=== PATIENT | male | born 1940 | race Two or more races ===

== ENCOUNTER 2019-11-27 19:42 | Inpatient (IN) | payer OTHER, MEDICAID ==
[~2019-11-27] VITALS: Ht 167.6 cm; Wt 63.9 kg
[~2019-11-27 19:42] MED LIST: ALEN1TAB32 PO; AMLO10TA13 PO; ATOR1TAB PO; BACL10TA PO; CARV3.1240 PO; CLOP75TA41 PO; FAMO-12 PO; FER325T PO; FURO1TAB33 PO; INSU1INJ26 SC; METH5T PO; RAMI10CA38 PO; RANO500T2 PO; SITA50TA PO; TEMA15CA91 PO
[2019-11-27] MEDS ORDERED: levoFLOXacin 500MG 100 ML IV ONE (20:00)
[2019-11-27] MEDS ORDERED: FUROSEMIDE 40 MG/4 ML VIAL IV ONE (20:00)
[2019-11-27] MEDS ORDERED: methylPREDNISolone SOD SUCC 125 MG/2 ML VL IV ONE (20:00)
[2019-11-27 21:22] LABS: Basophils # (auto) 0 10 ^3/uL (0-0.2); Eosinophils # (auto) 0 10 ^3/uL (0-0.8); Eosinophils % (auto) 0.5 % (0.0-7.0); Hemoglobin 11.8 g/dL (13.5-17.5); Lymphocytes # (auto) 0.7 10 ^3/uL (0.4-5.4); Monocytes # (auto) 0.6 10 ^3/uL (0-1.3); Neutrophils # (auto) 5.4 10 ^3/uL (1.6-8.6); Nucleated Red Blood Cells % 0.1 %; Red Cell Distribution Width 15.4 % (11.8-14.3)
[2019-11-27 21:24] LABS: Basophils % (auto) 0.6 % (0.0-2.0); Hematocrit 35.3 % (41.0-53.0); Lymphocytes % (auto) 10.6 % (10.0-50.0); Mean Corpuscular Hemoglobin 34.1 pg (28.0-32.0); Mean Corpuscular Hgb Conc. 33.4 g/dL (32.0-36.0); Mean Corpuscular Volume 101.9 fL (80.0-100.0); Monocytes % (auto) 9.2 % (0.0-12.0); Neutrophils % (auto) 79.1 % (37.0-80.0); Platelet Count (auto) 403 10^3/uL (140-450); Red Blood Cells 3.46 10^6/uL (4.5-5.90); White Blood Cell 6.9 10^3/uL (4.4-10.8)
[2019-11-27 21:42] LABS: Calcium 7.9 mg/dL (8.5-10.1); Potassium 4.4 mmol/L (3.5-5.1)
[2019-11-27 21:48] LABS: BUN/Creatinine Ratio 14.8; Bilirubin, Total 0.6 mg/dL (0.2-1.0); Total Protein 7.3 g/dL (6.4-8.2)
[2019-11-27 22:09] LABS: Urine Bacteria NONE SEEN /hpf (None Seen); Urine Blood Negative /uL (Negative); Urine Mucus FEW (None Seen); Urine Specific Gravity 1.012 (1.001-1.035); Urine WBC <1 /hpf (0 - 3)
[2019-11-27 22:12] LABS: CRP High Sensitivity 5.08 mg/dL (< 0.3)
[2019-11-27] MEDS ORDERED: NITROGLYCERIN 0.4 MG SL TAB SL PRN (22:15)
[2019-11-27] MEDS ORDERED: MORPHINE SULF INJ 2 MG/ML SYRINGE 1ML IV PRN (22:15)
[2019-11-27] MEDS ORDERED: ONDANSETRON HCL 4 MG/2 ML VIAL IV PRN (22:15)
[2019-11-27] MEDS ORDERED: DEXTROSE (50%) 50ML SYRG IV PRN (22:15)
[2019-11-27] MEDS ORDERED: TEMAZEPAM 15 MG CAP PO PRN (22:15)
[2019-11-27] MEDS ORDERED: ACETAMINOPHEN 325 MG TAB PO PRN (22:15)
[2019-11-27] MEDS ORDERED: DOXYCYCLINE 100MG/250ML 250 ML IV SCH (23:00)
[2019-11-28] MEDS: ACCU-CHEK COMFORT CURVE STRIP VI SCH ×4 (00:16→18:08)
[2019-11-28] MEDS: InsuLIN REG 1unit/0.01ml Soln (100units/ml) SC SCH ×4 (00:19→18:09)
[2019-11-28 01:10] VITALS: BP 128/52
[2019-11-28] MEDS ORDERED: FUROSEMIDE 40 MG/4 ML VIAL IV ONE (03:15)
[2019-11-28] MEDS ORDERED: ALBUTEROL SULF HFA 90MCG INH 200DOSE IN SCH (06:00)
[2019-11-28 06:44] LABS: Basophils # (auto) 0 10 ^3/uL (0-0.2); Eosinophils # (auto) 0 10 ^3/uL (0-0.8); Monocytes # (auto) 0 10 ^3/uL (0-1.3); Monocytes % (auto) 0.4 % (0.0-12.0); Neutrophils # (auto) 5.6 10 ^3/uL (1.6-8.6); Nucleated Red Blood Cells % 0.1 %; Red Blood Cells 3.54 10^6/uL (4.5-5.90)
[2019-11-28 06:46] LABS: Basophils % (auto) 0.2 % (0.0-2.0); Hematocrit 37.1 % (41.0-53.0); Lymphocytes # (auto) 0.4 10 ^3/uL (0.4-5.4); Lymphocytes % (auto) 6.1 % (10.0-50.0); Mean Corpuscular Hemoglobin 33.8 pg (28.0-32.0); Mean Corpuscular Hgb Conc. 32.3 g/dL (32.0-36.0); Mean Corpuscular Volume 104.7 fL (80.0-100.0); Neutrophils % (auto) 93.3 % (37.0-80.0); Platelet Count (auto) 425 10^3/uL (140-450); Red Cell Distribution Width 15.6 % (11.8-14.3)
[2019-11-28 07:02] LABS: Calcium 8.7 mg/dL (8.5-10.1); Potassium 4.9 mmol/L (3.5-5.1)
[2019-11-28 07:05] LABS: Bilirubin, Total 0.7 mg/dL (0.2-1.0); Total Protein 7.8 g/dL (6.4-8.2)
[2019-11-28] MEDS ORDERED: CHOLECALCIFEROL (VITD3) 1,000IU=25mCg TAB PO SCH (10:00)
[2019-11-28] MEDS ORDERED: ZINC SULFATE 220mg CAP or TAB PO SCH (10:00)
[2019-11-28] MEDS ORDERED: ASCORBIC ACID 1,000 MG TAB PO SCH (10:00)
[2019-11-28] MEDS ORDERED: FUROSEMIDE 40 MG TAB PO SCH ×2 (10:00)
[2019-11-28] MEDS ORDERED: RAMIPRIL 2.5 MG CAP PO SCH (10:00)
[2019-11-28] MEDS ORDERED: methylPREDNISolone SOD SUCC 125 MG/2 ML VL IV SCH (10:00)
[2019-11-28] MEDS: ASPirin 81 mg TAB PO SCH (10:21)
[2019-11-28] MEDS: CARVEDILOL 3.125 MG TAB PO SCH ×2 (10:22→21:48)
[2019-11-28] MEDS: amLODIPine BESYLATE 5 MG TAB PO SCH (10:22)
[2019-11-28] MEDS: PANTOPRAZOLE 40 MG TAB PO SCH (10:23)
[2019-11-28] MEDS: CLOPIDOGREL BISULFATE 75 MG TAB PO SCH (10:23)
[2019-11-28] MEDS: RANOLAZINE ER 500 MG TAB PO SCH ×2 (10:24→21:49)
[2019-11-28] MEDS ORDERED: cefTRIAXone 1GM/50ML D5W 50 ML IV ONE (11:30)
[2019-11-28] MEDS ORDERED: AZITHROMYCIN 500MG/ 250ML 250 ML IV ONE (11:30)
--- NOTE | 2019-11-28 13:30 | NUR ---
Telemetry admit from ER [facility] admitted to Telemetry unit after SBAR received. Patient oriented to LAURO MCDERMOTT RN primary RN, unit, room, bed, and unit policies regarding patient care and visiting hours. Patient now on continuous telemetry monitoring, tele box # [id number] and telemetry reading on arrival to unit is SR. Patient placed on bedside oxygen 3L via NC, weighed by bedscale and encouraged to call if they need something. All questions and concerns addressed, patient verbalized understanding.
[2019-11-28 13:35] VITALS: BP 120/60
[2019-11-28] MEDS: ALBUTEROL SULF 2.5 MG/0.5ML(0.5%) NEB SOLN NEB SCH ×3 (13:42→22:17)
[2019-11-28] MEDS: IPRATROPIUM BROM 0.5 MG/2.5ML INH SOL NEB SCH ×3 (13:42→22:17)
[2019-11-28] MEDS ORDERED: APIX5TAB PO (13:51)
[2019-11-28] MEDS ORDERED: ATOR40TA52 PO (13:51)
[2019-11-28] MEDS ORDERED: ALBUAER3 IN (13:51)
[2019-11-28] MEDS ORDERED: FINA5TAB4 PO (13:51)
[2019-11-28] MEDS ORDERED: PANT40TA2 PO (13:51)
[2019-11-28] MEDS ORDERED: MIRT30TA PO (13:51)
[2019-11-28] MEDS ORDERED: CARV6.2551 PO (13:51)
--- NOTE | 2019-11-28 13:52 | NUR ---
Respiratory note: TITRATED FIO2 TO 3L
[2019-11-28] MEDS ORDERED: SITA50TA PO (13:56)
[2019-11-28] MEDS ORDERED: FLUT100I IN (13:56)
[2019-11-28] MEDS ORDERED: ALBUTEROL SULF 2.5 MG/0.5ML(0.5%) NEB SOLN NEB SCH (14:00)
[2019-11-28 14:12] VITALS: BP 120/60
[2019-11-28] MEDS ORDERED: INSULIN LANTUS (GLARGINE) 1 /0.01ml (100units/ml) SC ONE (16:00)
[2019-11-28] MEDS ORDERED: DEXTROSE (50%) 50ML SYRG IV PRN (16:00)
[2019-11-28 17:00] VITALS: BP 128/62
[2019-11-28] MEDS: FUROSEMIDE 40 MG/4 ML VIAL IV SCH (18:15)
[2019-11-28] MEDS ORDERED: levoFLOXacin 250MG 50 ML IV SCH (20:00)
[2019-11-28] MEDS: methylPREDNISolone SOD SUCC 40 MG/ML VL IV SCH (21:48)
[2019-11-28] MEDS: ATORVASTATIN 20 MG TAB PO SCH (21:49)
[2019-11-28 22:00] VITALS: BP 104/52
[2019-11-29] MEDS: ACCU-CHEK COMFORT CURVE STRIP VI SCH ×4 (00:25→18:00)
[2019-11-29] MEDS: InsuLIN REG 1unit/0.01ml Soln (100units/ml) SC SCH ×4 (00:25→18:58)
[2019-11-29] MEDS: IPRATROPIUM BROM 0.5 MG/2.5ML INH SOL NEB SCH ×6 (02:00→22:00)
[2019-11-29] MEDS: ALBUTEROL SULF 2.5 MG/0.5ML(0.5%) NEB SOLN NEB SCH ×6 (02:00→22:00)
[2019-11-29 05:00] VITALS: BP 109/57
[2019-11-29] MEDS: FUROSEMIDE 40 MG/4 ML VIAL IV SCH ×2 (05:53→18:57)
[2019-11-29 06:00] LABS: Basophils # (auto) 0 10 ^3/uL (0-0.2); Basophils % (auto) 0.3 % (0.0-2.0); Eosinophils # (auto) 0 10 ^3/uL (0-0.8); Hematocrit 34.5 % (41.0-53.0); Hemoglobin 11.2 g/dL (13.5-17.5); Lymphocytes # (auto) 0.6 10 ^3/uL (0.4-5.4); Mean Corpuscular Hemoglobin 33.5 pg (28.0-32.0); Mean Corpuscular Hgb Conc. 32.4 g/dL (32.0-36.0); Mean Corpuscular Volume 103.2 fL (80.0-100.0); Monocytes # (auto) 0.3 10 ^3/uL (0-1.3); Monocytes % (auto) 2.2 % (0.0-12.0); Neutrophils # (auto) 13.3 10 ^3/uL (1.6-8.6); Neutrophils % (auto) 93.5 % (37.0-80.0); Platelet Count (auto) 356 10^3/uL (140-450); Red Blood Cells 3.34 10^6/uL (4.5-5.90); Red Cell Distribution Width 15.8 % (11.8-14.3); White Blood Cell 14.2 10^3/uL (4.4-10.8)
[2019-11-29 06:10] LABS: BUN/Creatinine Ratio 13.8; Calcium 7.8 mg/dL (8.5-10.1); Potassium 4.2 mmol/L (3.5-5.1)
--- NOTE | 2019-11-29 07:30 | NUR ---
Opening Shift Note Assumed care of patient, awake and alert. No S/S of distress/SOB or pain. Bed in lowest and locked position with side rails up x2 and call light in reach. Instructed on POC and to call for assist PRN, will continue to monitor for changes Q1hr and PRN.
[2019-11-29 09:00] VITALS: BP 110/59
[2019-11-29] MEDS: cefTRIAXone 1GM/50ML D5W 50 ML IV SCH (09:08)
[2019-11-29] MEDS: methylPREDNISolone SOD SUCC 40 MG/ML VL IV SCH ×2 (09:15→23:09)
[2019-11-29] MEDS: ASPirin 81 mg TAB PO SCH (09:15)
[2019-11-29] MEDS: CARVEDILOL 3.125 MG TAB PO SCH ×2 (09:16→22:00)
[2019-11-29] MEDS: amLODIPine BESYLATE 5 MG TAB PO SCH (09:16)
[2019-11-29] MEDS: PANTOPRAZOLE 40 MG TAB PO SCH (09:17)
[2019-11-29] MEDS: RANOLAZINE ER 500 MG TAB PO SCH ×2 (09:17→23:08)
[2019-11-29] MEDS: CLOPIDOGREL BISULFATE 75 MG TAB PO SCH (09:17)
[2019-11-29] MEDS ORDERED: AZITHROMYCIN 500MG/ 250ML 250 ML IV SCH (10:00)
[2019-11-29 13:00] VITALS: BP 96/49
--- NOTE | 2019-11-29 13:30 | NUR ---
Opening Shift Note Resumed care of patient from Lotus Mcdonough RN, awake and alert. No S/S of distress/SOB, denies pain at this time. Bed in lowest and locked position with side rails up x2 and call light in reach. Instructed on POC and to call for assist PRN, will continue to monitor for changes Q1hr and PRN.
[2019-11-29 16:40] VITALS: BP 119/59
[2019-11-29] MEDS ORDERED: INSULIN 70/30 1unit/0.01ml Susp (100units/ml) SC SCH (17:30)
[2019-11-29 22:00] VITALS: BP 109/49
--- NOTE | 2019-11-29 22:02 | NUR ---
Respiratory note: AT BEDSIDE FOR MED NEB TX, PT SLEEPING. NO RESPIRATORY DISTRESS NOTED. WILL RETURN AT NEXT SCHEDULED TIME FOR MED NEB TX.
[2019-11-29] MEDS: APIXABAN 5 MG TAB PO SCH (23:08)
[2019-11-29] MEDS: ATORVASTATIN 20 MG TAB PO SCH (23:08)
[2019-11-29] MEDS: DOXYCYCLINE 100 MG TAB/CAP PO SCH (23:08)
[2019-11-30] MEDS: InsuLIN REG 1unit/0.01ml Soln (100units/ml) SC SCH ×3 (00:25→12:51)
[2019-11-30] MEDS: ALBUTEROL SULF 2.5 MG/0.5ML(0.5%) NEB SOLN NEB SCH ×3 (01:58→09:36)
[2019-11-30] MEDS: IPRATROPIUM BROM 0.5 MG/2.5ML INH SOL NEB SCH ×3 (01:58→09:36)
--- NOTE | 2019-11-30 01:58 | NUR ---
Respiratory note: PT SLEEPING, MED NEB TX NOT GIVEN. NO RESPIRATORY DISTRESS NOTED, WILL CONTINUE TO MONITOR.
[2019-11-30 04:58] VITALS: BP 108/46
[2019-11-30] MEDS: FUROSEMIDE 40 MG/4 ML VIAL IV SCH (05:47)
[2019-11-30] MEDS: ACCU-CHEK COMFORT CURVE STRIP VI SCH ×3 (06:00→12:00)
[2019-11-30 06:20] LABS: Calcium 8.6 mg/dL (8.5-10.1); Potassium 4.1 mmol/L (3.5-5.1)
[2019-11-30 06:23] LABS: BUN/Creatinine Ratio 16.5
--- NOTE | 2019-11-30 07:28 | NUR ---
Opening Shift Note Assumed care of patient from noc shift rn, asleep on encounter but easily aroused. Alert and oriented x4. No S/S of distress/SOB, denies pain. Bed in lowest and locked position with side rails up x2 and call light in reach. Instructed on POC and to call for assist PRN, will continue to monitor for changes Q1hr and PRN.
[2019-11-30 08:00] VITALS: BP 117/55
[2019-11-30] MEDS ORDERED: INSULIN 70/30 1unit/0.01ml Susp (100units/ml) SC SCH (08:00)
[2019-11-30] MEDS: cefTRIAXone 1GM/50ML D5W 50 ML IV SCH (08:12)
[2019-11-30 09:06] VITALS: BP 117/55
[2019-11-30] MEDS ORDERED: ASPirin 81 mg TAB PO SCH (10:00)
[2019-11-30] MEDS ORDERED: methIMAzole 5 MG TAB PO SCH (10:00)
[2019-11-30] MEDS: methylPREDNISolone SOD SUCC 40 MG/ML VL IV SCH (10:22)
[2019-11-30] MEDS: RANOLAZINE ER 500 MG TAB PO SCH (10:22)
[2019-11-30] MEDS: PANTOPRAZOLE 40 MG TAB PO SCH (10:22)
[2019-11-30] MEDS: DOXYCYCLINE 100 MG TAB/CAP PO SCH (10:23)
[2019-11-30] MEDS: APIXABAN 5 MG TAB PO SCH (10:23)
[2019-11-30] MEDS: CLOPIDOGREL BISULFATE 75 MG TAB PO SCH (10:24)
[2019-11-30] MEDS: CARVEDILOL 3.125 MG TAB PO SCH (10:24)
[2019-11-30] MEDS: amLODIPine BESYLATE 5 MG TAB PO SCH (10:26)
[2019-11-30 11:16] VITALS: BP 117/55
--- NOTE | 2019-11-30 13:25 | NUR ---
patient discharged at this time per MD's order. patient alert and oriented x4 and ambulatory. Discharge summary, prescription, and follow up instructions provided to patient. Patient verbalized understanding. IV access discontinued and tele box #[id number] returned to ICU.
== END 2019-11-30 13:25 | disposition home or self-care (01) | DRG 291 ==
LOC: EDBD 19:42 → ER 19:42 → TELE 19:43 → TELE-CENTR 11-28 13:23
PROVIDERS: ADMIT Nurse Practitioner; ATTEND Internal Medicine
PROC: 5A09357 Assistance with Respiratory Ventilation, Less than 24 Consecutive Hours, Continuous Positive Airway Pressure (ICD-10-PCS; principal; 2019-11-27)
DX: I13.0 Hypertensive heart and chronic kidney disease with heart failure and stage 1 through stage 4 chronic kidney disease, or unspecified chronic kidney disease (principal); J96.21 Acute and chronic respiratory failure with hypoxia; I50.43 Acute on chronic combined systolic (congestive) and diastolic (congestive) heart failure; J18.9 Pneumonia, unspecified organism; N17.9 Acute kidney failure, unspecified; E44.0 Moderate protein-calorie malnutrition; J43.9 Emphysema, unspecified; E11.22 Type 2 diabetes mellitus with diabetic chronic kidney disease; I25.10 Atherosclerotic heart disease of native coronary artery without angina pectoris; I25.5 Ischemic cardiomyopathy; E05.90 Thyrotoxicosis, unspecified without thyrotoxic crisis or storm; N18.3 Chronic kidney disease, stage 3 (moderate); Z82.49 Family history of ischemic heart disease and other diseases of the circulatory system; Z83.3 Family history of diabetes mellitus; Z86.73 Personal history of transient ischemic attack (TIA), and cerebral infarction without residual deficits; Z95.1 Presence of aortocoronary bypass graft; Z95.0 Presence of cardiac pacemaker; Z03.818 Encounter for observation for suspected exposure to other biological agents ruled out; Z68.22 Body mass index [BMI] 22.0-22.9, adult; Z79.4 Long term (current) use of insulin
CPT/HCPCS: 36415; 36600; 71045; 80048; 80053; 81001; 82728; 82805; 82962; 83036; 83605; 83615; 83735; 83880; 84443; 84484; 85025; 85379; 86141; 87040; 87070; 87804; 87880; 93005; 94640; 99291; G0378; J0696; J1815; J1956

== ENCOUNTER 2020-03-09 15:35 | Inpatient (IN) | payer OTHER, MEDICAID ==
[~2020-03-09] VITALS: Ht 167.6 cm; Wt 61.5 kg
[~2020-03-09 15:35] MED LIST changes: +ALBUAER3 IN; +APIX5TAB PO; -ATOR1TAB PO; +ATOR40TA52 PO; -CARV3.1240 PO; +CARV6.2551 PO; +FINA5TAB4 PO; +FLUT100I IN; +MIRT30TA PO; +PANT40TA2 PO
[2020-03-09] MEDS ORDERED: DEXTROSE 50% SYRINGE 50 ML IV ONE (15:43)
[2020-03-09] MEDS ORDERED: DEXTROSE (50%) 50ML SYRG IV ONE (15:43)
[2020-03-09 16:41] LABS: Basophils # (auto) 0 10 ^3/uL (0-0.2); Basophils % (auto) 0.4 % (0.0-2.0); Eosinophils # (auto) 0.1 10 ^3/uL (0-0.8); Hematocrit 34.9 % (41.0-53.0); Hemoglobin 11.7 g/dL (13.5-17.5); Lymphocytes % (auto) 12.9 % (10.0-50.0); Mean Corpuscular Hemoglobin 32.7 pg (28.0-32.0); Mean Corpuscular Hgb Conc. 33.4 g/dL (32.0-36.0); Mean Corpuscular Volume 97.8 fL (80.0-100.0); Monocytes # (auto) 0.5 10 ^3/uL (0-1.3); Monocytes % (auto) 5.9 % (0.0-12.0); Neutrophils # (auto) 6.1 10 ^3/uL (1.6-8.6); Neutrophils % (auto) 79.8 % (37.0-80.0); Nucleated Red Blood Cells % 0.1 %; Platelet Count (auto) 347 10^3/uL (140-450); Red Blood Cells 3.57 10^6/uL (4.5-5.90); Red Cell Distribution Width 16.3 % (11.8-14.3); White Blood Cell 7.6 10^3/uL (4.4-10.8)
[2020-03-09 16:56] LABS: INR 1.08 (0.9-1.15)
[2020-03-09] MEDS ORDERED: D5W/SOD CHLO 0.9% 1,000 ML IV ONE (17:00)
[2020-03-09 17:09] LABS: Albumin 3.4 g/dL (3.4-5.0); Calcium 8.2 mg/dL (8.5-10.1); Magnesium 2.4 mg/dL (1.6-2.6)
[2020-03-09 17:15] LABS: BUN/Creatinine Ratio 8.3; Bilirubin, Total 0.5 mg/dL (0.2-1.0); Total Protein 8.3 g/dL (6.4-8.2)
[2020-03-09] MEDS ORDERED: cefTRIAXone 1GM/50ML D5W 50 ML IV ONE (17:45)
[2020-03-09] MEDS ORDERED: AZITHROMYCIN 500MG/ 250ML 250 ML IV ONE (17:45)
[2020-03-09] MEDS ORDERED: D5W 5% 1,000 ML IV ONE ×2 (18:00)
[2020-03-09] MEDS ORDERED: NITROGLYCERIN 0.4 MG SL TAB SL PRN (18:00)
[2020-03-09] MEDS ORDERED: DEXTROSE (50%) 50ML SYRG IV PRN (18:00)
[2020-03-09] MEDS ORDERED: ACETAMINOPHEN 325 MG TAB PO PRN (18:00)
[2020-03-09] MEDS ORDERED: HYDROcodone-ACET 5/325MG TAB PO PRN (18:00)
[2020-03-09] MEDS ORDERED: MORPHINE SULF INJ 2 MG/ML SYRINGE 1ML IV PRN ×2 (18:00)
[2020-03-09 18:44] LABS: Urine Bacteria NONE SEEN /hpf (None Seen); Urine Blood Negative /uL (Negative); Urine Hyaline Cast FEW /lpf (0 - 2); Urine Specific Gravity 1.007 (1.001-1.035); Urine WBC 4 /hpf (0 - 3)
[2020-03-09] MEDS: ACCU-CHEK COMFORT CURVE STRIP VI SCH (20:36)
[2020-03-09] MEDS: PIPERACILLIN-TAZOB 3.375GM 100 ML IV SCH (22:00)
--- NOTE | 2020-03-09 23:30 | NUR ---
MS admit from ER [facility] admitted to tele/MS. Patient oriented to CIARAN SILVESTRE RN room 249, bed B. Pt is alert and oriented x4, on 3L NC with SOB on exertion. Patient weighed by bedscale and encouraged to call if they need something. All questions and concerns addressed, patient verbalized understanding. Bed locked, in lowest position, call light within reach, side rails up x2, fall precautions in place. Will continue to monitor Q1hr and PRN.
[2020-03-10] MEDS: ACCU-CHEK COMFORT CURVE STRIP VI SCH ×6 (00:11→22:06)
[2020-03-10 00:30] VITALS: BP 148/62
[2020-03-10 05:28] VITALS: BP 125/58
--- NOTE | 2020-03-10 06:40 | NUR ---
IV insertion IV access obtained, via clean sterile technique by inserting 20 gauge catheter at right forearm after 1 attempt. IV secured properly. No trauma to site. Patient tolerated procedure well.
[2020-03-10] MEDS: PIPERACILLIN-TAZOB 3.375GM 100 ML IV SCH (06:42)
[2020-03-10 06:59] LABS: Basophils # (auto) 0 10 ^3/uL (0-0.2); Basophils % (auto) 0.5 % (0.0-2.0); Eosinophils # (auto) 0.1 10 ^3/uL (0-0.8); Eosinophils % (auto) 1.4 % (0.0-7.0); Hematocrit 33.5 % (41.0-53.0); Lymphocytes # (auto) 1.1 10 ^3/uL (0.4-5.4); Lymphocytes % (auto) 17.5 % (10.0-50.0); Mean Corpuscular Hemoglobin 32.2 pg (28.0-32.0); Mean Corpuscular Hgb Conc. 32.9 g/dL (32.0-36.0); Mean Corpuscular Volume 97.9 fL (80.0-100.0); Monocytes # (auto) 0.5 10 ^3/uL (0-1.3); Monocytes % (auto) 8.2 % (0.0-12.0); Neutrophils # (auto) 4.5 10 ^3/uL (1.6-8.6); Neutrophils % (auto) 72.4 % (37.0-80.0); Platelet Count (auto) 343 10^3/uL (140-450); Red Blood Cells 3.42 10^6/uL (4.5-5.90); Red Cell Distribution Width 16.3 % (11.8-14.3); White Blood Cell 6.3 10^3/uL (4.4-10.8)
[2020-03-10 07:23] LABS: Calcium 8.4 mg/dL (8.5-10.1); Magnesium 2.3 mg/dL (1.6-2.6); Potassium 4.1 mmol/L (3.5-5.1)
[2020-03-10 07:26] LABS: BUN/Creatinine Ratio 7.1
[2020-03-10 09:00] VITALS: BP 104/53
--- NOTE | 2020-03-10 09:51 | NUR ---
PAGED DR MORALES PATIENT STATES HE IS ITCHING EVERYWHERE. HE DOES HAVE SLIGHT REDNESS TO BACK AREA.
[2020-03-10] MEDS ORDERED: levoFLOXacin 500MG 100 ML IV ONE (10:30)
[2020-03-10] MEDS: diphenhdrAMINE HCL 25 MG CAP PO PRN (10:51)
[2020-03-10 13:00] VITALS: BP 131/65
[2020-03-10] MEDS ORDERED: DEXTROSE (50%) 50ML SYRG IV PRN (17:00)
[2020-03-10] MEDS: InsuLIN REG 1unit/0.01ml Soln (100units/ml) SC SCH ×2 (17:06→22:00)
--- NOTE | 2020-03-10 19:55 | NUR ---
Opening Shift Note Assumed care of patient. Awake, alert and oriented x4. No S/S of distress/SOB or pain. Pt is on 3L NC with even and unlabored respirations. Pt does get SOB on exertion. Instructed on POC and to call for assist PRN. Bed locked, in lowest position, call light within reach, side rails up x2. Will continue to monitor for changes Q1hr and PRN.
[2020-03-10 22:00] VITALS: BP 122/65
[2020-03-11 05:00] VITALS: BP 126/60
[2020-03-11] MEDS: InsuLIN REG 1unit/0.01ml Soln (100units/ml) SC SCH ×3 (06:19→17:00)
[2020-03-11] MEDS: ACCU-CHEK COMFORT CURVE STRIP VI SCH ×3 (06:20→17:03)
[2020-03-11] MEDS: diphenhdrAMINE HCL 25 MG CAP PO PRN (06:30)
[2020-03-11 07:23] LABS: BUN/Creatinine Ratio 8.6; Calcium 8.8 mg/dL (8.5-10.1); Magnesium 2.3 mg/dL (1.6-2.6); Potassium 4.2 mmol/L (3.5-5.1)
--- NOTE | 2020-03-11 07:50 | NUR ---
Opening note Assumed care of patient from RESHMA Conway. Patient is AOX4 no s/s of SOB or distress noted.Patient noted to be on 2 Liters via nasal cannula. Bed in in lowest locked position, side rails up x2 and call light is within reach. Updated patient on plan of care and patient verbalized understanding. Will continue to monitor q1hr and PRN. Addendum: 03/11/20 at 0913 by HAIR CAMACHO RN PATIENT NOTED TO BE ON 3 LITERS OXYGEN.
[2020-03-11 08:00] VITALS: BP 114/54
--- NOTE | 2020-03-11 08:50 | NUR ---
JUANA KAUFMAN Received fax from [facility] regarding patient results. Patient is COVID -19 negative. Radha loading unit operator powder charging to notify transmitter engineer in charge Rhonda. Addendum: 03/11/20 at 0912 by HAIR CAMACHO RN Updated patient regarding negative results, patient verbalized understanding.
[2020-03-11 10:33] LABS: Basophils # (auto) 0 10 ^3/uL (0-0.2); Basophils % (auto) 0.5 % (0.0-2.0); Eosinophils # (auto) 0.1 10 ^3/uL (0-0.8); Eosinophils % (auto) 1.7 % (0.0-7.0); Hemoglobin 11.1 g/dL (13.5-17.5); Lymphocytes # (auto) 1.3 10 ^3/uL (0.4-5.4); Lymphocytes % (auto) 22.1 % (10.0-50.0); Mean Corpuscular Hemoglobin 32.9 pg (28.0-32.0); Mean Corpuscular Hgb Conc. 33.7 g/dL (32.0-36.0); Mean Corpuscular Volume 97.7 fL (80.0-100.0); Monocytes # (auto) 0.4 10 ^3/uL (0-1.3); Monocytes % (auto) 7.5 % (0.0-12.0); Neutrophils % (auto) 68.2 % (37.0-80.0); Nucleated Red Blood Cells % 0.1 %; Platelet Count (auto) 340 10^3/uL (140-450); Red Blood Cells 3.38 10^6/uL (4.5-5.90); Red Cell Distribution Width 16.1 % (11.8-14.3); White Blood Cell 5.9 10^3/uL (4.4-10.8)
--- NOTE | 2020-03-11 12:48 | NUR ---
Received call from Form Press Operator. Patient assigned to room 219B with AGUILA Parham.
--- NOTE | 2020-03-11 12:50 | NUR ---
report report given to AGUILA Parham.
--- NOTE | 2020-03-11 13:00 | NUR ---
tele monitor Notified tele personnel monitor regarding patient changing rooms. Sent current tele monitor to tele room via bullet, requested new tele box for central. Awaiting new tele monitor box.
--- NOTE | 2020-03-11 13:25 | NUR ---
Patient placed on tele box #[id number]
--- NOTE | 2020-03-11 13:37 | NUR ---
patient transferred to room 219b via wheel chair with all personal belongings, no s/s of distress or SOB noted.
--- NOTE | 2020-03-11 13:38 | NUR ---
Assumed care of patient Patient resting in bed with even and unlabored respirations, no distress noted. Instructed patient on POC, fall precautions and to call for assistance as needed. Patient verbalized understanding. Fall precautions in place with call light within reach.
--- NOTE | 2020-03-11 14:15 | NUR ---
was at bedside - Dr. Benjamin
[2020-03-11 14:35] VITALS: BP 122/68
--- NOTE | 2020-03-11 14:37 | NUR ---
RE: Cardiology Contacted Dr. Carney's office RE: discharge clearance. to be paged. Spoke with Adrianna.
--- NOTE | 2020-03-11 15:41 | NUR ---
RE: Cardiology MD verbalized understanding RE: discharge clearance. MD to come to bedside.
--- NOTE | 2020-03-11 16:00 | NUR ---
Patient ambulated to restroom with a steady gait No distress noted. Patient returned to bed with no complications noted. Call light within reach.
--- NOTE | 2020-03-11 16:08 | NUR ---
dietary tech at bedside
[2020-03-11 16:39] VITALS: BP 136/60
--- NOTE | 2020-03-11 16:59 | NUR ---
Dr. Carney at bedside
--- NOTE | 2020-03-11 17:02 | NUR ---
Patient okay for discharge per Dr. Carney.
--- NOTE | 2020-03-11 18:21 | NUR ---
Discharge Discharge education and paperwork provided to the patient per MD order. Patient verbalized understanding. Instructed patient on discharge telephone follow up appointment. Patient verbalized understanding. IV removed with aseptic technique, catheter intact. Dressing and pressure applied. Patient tolerated well, no trauma to site. Telemonitor removed and returned. Patient reports having all personal belongings. Respirations even and unlabored, no distress noted. Patient has contacted transportation and is to notify staff once transportation has arrived to hospital.
--- NOTE | 2020-03-11 18:51 | NUR ---
Transportation arrived to hospital Patient transferred to private vehicle via wheelchair accompanied by staff member. No distress noted.
== END 2020-03-11 18:51 | disposition home health service (06) | DRG 637 ==
LOC: ER 15:35 → EDBD 15:35 → TELE 15:36 → TELE-EAST 23:09 → TELE-CENTR 03-11 13:40
PROVIDERS: ADMIT Internal Medicine; ATTEND Internal Medicine
DX: E11.649 Type 2 diabetes mellitus with hypoglycemia without coma (principal); J18.9 Pneumonia, unspecified organism; G93.41 Metabolic encephalopathy; I24.8 Other forms of acute ischemic heart disease; N17.0 Acute kidney failure with tubular necrosis; Z20.828 Contact with and (suspected) exposure to other viral communicable diseases; E78.5 Hyperlipidemia, unspecified; I11.0 Hypertensive heart disease with heart failure; I25.10 Atherosclerotic heart disease of native coronary artery without angina pectoris; J32.9 Chronic sinusitis, unspecified; I34.0 Nonrheumatic mitral (valve) insufficiency; I50.9 Heart failure, unspecified; Z82.49 Family history of ischemic heart disease and other diseases of the circulatory system; Z83.3 Family history of diabetes mellitus; Z86.73 Personal history of transient ischemic attack (TIA), and cerebral infarction without residual deficits; Z79.4 Long term (current) use of insulin; Z95.0 Presence of cardiac pacemaker; Z95.1 Presence of aortocoronary bypass graft
CPT/HCPCS: 36415; 70450; 71045; 80048; 80053; 81001; 82962; 83036; 83735; 83880; 84484; 85025; 85610; 85730; 87426; 93005; 93306; 97163; 99291; G0378; J0696; J1815; J1956; J2543; J7042

== ENCOUNTER 2020-11-14 09:34 | Inpatient (IN) | payer OTHER, MEDICAID ==
[~2020-11-14] VITALS: Ht 165.1 cm; Wt 57.0 kg
[~2020-11-14 09:34] MED LIST changes: -ALEN1TAB32 PO; +ALEN70TA74 PO; +AMLO-496 PO; -AMLO10TA13 PO; -CLOP75TA41 PO; +CLOP75TA70 PO; +MIRT-66 PO; -MIRT30TA PO; -SITA50TA PO; +TEMA15CA2 PO; -TEMA15CA91 PO
[2020-11-14 10:19] LABS: Basophils # (auto) 0 10 ^3/uL (0-0.2); Basophils % (auto) 0.7 % (0.0-2.0); Eosinophils # (auto) 0.2 10 ^3/uL (0-0.8); Eosinophils % (auto) 3.1 % (0.0-7.0); Hematocrit 36.3 % (41.0-53.0); Lymphocytes # (auto) 1.3 10 ^3/uL (0.4-5.4); Lymphocytes % (auto) 20.2 % (10.0-50.0); Mean Corpuscular Hemoglobin 32.2 pg (28.0-32.0); Mean Corpuscular Hgb Conc. 33.1 g/dL (32.0-36.0); Mean Corpuscular Volume 97.4 fL (80.0-100.0); Monocytes # (auto) 0.6 10 ^3/uL (0-1.3); Monocytes % (auto) 9.5 % (0.0-12.0); Neutrophils # (auto) 4.2 10 ^3/uL (1.6-8.6); Neutrophils % (auto) 66.5 % (37.0-80.0); Platelet Count (auto) 293 10^3/uL (140-450); Red Blood Cells 3.72 10^6/uL (4.5-5.90); Red Cell Distribution Width 15.7 % (11.8-14.3); White Blood Cell 6.4 10^3/uL (4.4-10.8)
[2020-11-14 10:28] LABS: INR 1.01 (0.9-1.15); Partial Thromboplastin Time 28.4 sec (23.0-31.2)
[2020-11-14 10:34] LABS: Albumin 2.9 g/dL (3.4-5.0); Calcium 8.5 mg/dL (8.5-10.1); Magnesium 2.2 mg/dL (1.6-2.6); Potassium 3.8 mmol/L (3.5-5.1)
[2020-11-14 10:39] LABS: BUN/Creatinine Ratio 9.3; Bilirubin, Total 0.3 mg/dL (0.2-1.0); Total Protein 7.6 g/dL (6.4-8.2)
[2020-11-14] MEDS ORDERED: ENOXAPARIN SOD 80 MG/0.8ML SYRINGE SC ONE (11:00)
[2020-11-14 12:40] LABS: Urine Bacteria NONE SEEN /hpf (None Seen); Urine Blood Negative /uL (Negative); Urine Specific Gravity 1.011 (1.001-1.035); Urine WBC <1 /hpf (0 - 3)
[2020-11-14] MEDS ORDERED: MORPHINE SULF INJ 2 MG/ML SYRINGE 1ML IV PRN ×3 (13:15→18:15)
[2020-11-14] MEDS ORDERED: NITROGLYCERIN 0.4 MG SL TAB SL PRN ×2 (13:15→18:15)
[2020-11-14] MEDS ORDERED: LABETALOL HCL 5 MG/ML 4ML SYRINGE IV PRN (18:15)
[2020-11-14] MEDS ORDERED: LORazepam 0.5 MG TAB PO PRN (18:15)
[2020-11-14] MEDS ORDERED: PANTOPRAZOLE 40 MG/10 ML VIAL INJ IV ONE (18:15)
[2020-11-14] MEDS ORDERED: ALUM & MAG HYDROX-SIMETH LIQ(MAALOX) 30 ML PO PRN (18:15)
[2020-11-14] MEDS ORDERED: MORPHINE SULFATE 4 MG/ML SYR/VIAL IV PRN (18:15)
[2020-11-14] MEDS ORDERED: DEXTROSE (50%) 50ML SYRG IV PRN (18:15)
[2020-11-14] MEDS ORDERED: FUROSEMIDE 40 MG/4 ML VIAL IV ONE (18:15)
[2020-11-14] MEDS ORDERED: SUCRALFATE 1 GM/10 ML ORAL SUSP PO ONE (18:15)
[2020-11-14] MEDS ORDERED: ONDANSETRON HCL 4 MG/2 ML VIAL IV PRN ×2 (18:15)
[2020-11-14] MEDS ORDERED: METOPROLOL SUCCINATE XL 50 MG TAB PO ONE (18:15)
[2020-11-14] MEDS ORDERED: ALUM & MAG HYDROX-SIMETH LIQ(MAALOX) 30 ML PO ONE (18:15)
[2020-11-14 20:55] LABS: Urine Bacteria NONE SEEN /hpf (None Seen); Urine Blood Negative /uL (Negative); Urine Specific Gravity 1.009 (1.001-1.035); Urine WBC <1 /hpf (0 - 3)
[2020-11-14 22:00] VITALS: BP 141/69
[2020-11-14] MEDS ORDERED: FLUTICASONE-VILANTEROL 100-25mCg INHALER IN SCH (22:00)
[2020-11-14] MEDS: InsuLIN REG 1unit/0.01ml Soln (100units/ml) SC SCH (22:00)
[2020-11-14] MEDS: ACCU-CHEK COMFORT CURVE STRIP VI SCH (22:00)
[2020-11-14] MEDS: SUCRALFATE 1 GM/10 ML ORAL SUSP PO SCH (22:25)
[2020-11-14] MEDS: RANOLAZINE ER 500 MG TAB PO SCH (22:26)
[2020-11-14] MEDS: APIXABAN 5 MG TAB PO SCH (22:26)
[2020-11-14] MEDS: BACLOFEN 10 MG TAB PO SCH (22:27)
[2020-11-14] MEDS: ATORVASTATIN 20 MG TAB PO SCH (22:27)
[2020-11-14] MEDS: SODIUM CHLOR 0.9% PF (SALINE LOCK) 10ML VIAL/SYR IV SCH (22:28)
[2020-11-15] MEDS ORDERED: ALBUTEROL SULF HFA 90MCG INH 200DOSE IN SCH
[2020-11-15 05:00] VITALS: BP 126/63
[2020-11-15 05:24] LABS: Basophils # (auto) 0.1 10 ^3/uL (0-0.2); Basophils % (auto) 1.7 % (0.0-2.0); Eosinophils # (auto) 0.2 10 ^3/uL (0-0.8); Eosinophils % (auto) 3.8 % (0.0-7.0); Hematocrit 37.2 % (41.0-53.0); Hemoglobin 13.1 g/dL (13.5-17.5); Lymphocytes # (auto) 1.2 10 ^3/uL (0.4-5.4); Lymphocytes % (auto) 18.6 % (10.0-50.0); Mean Corpuscular Hemoglobin 33.6 pg (28.0-32.0); Mean Corpuscular Hgb Conc. 35.1 g/dL (32.0-36.0); Mean Corpuscular Volume 95.9 fL (80.0-100.0); Monocytes # (auto) 0.7 10 ^3/uL (0-1.3); Monocytes % (auto) 10.3 % (0.0-12.0); Neutrophils # (auto) 4.2 10 ^3/uL (1.6-8.6); Neutrophils % (auto) 65.6 % (37.0-80.0); Nucleated Red Blood Cells % 0.1 %; Platelet Count (auto) 305 10^3/uL (140-450); Red Blood Cells 3.88 10^6/uL (4.5-5.90); Red Cell Distribution Width 15.6 % (11.8-14.3); White Blood Cell 6.4 10^3/uL (4.4-10.8)
[2020-11-15] MEDS: SODIUM CHLOR 0.9% PF (SALINE LOCK) 10ML VIAL/SYR IV SCH ×3 (05:26→22:40)
[2020-11-15] MEDS: FUROSEMIDE 40 MG/4 ML VIAL IV SCH ×2 (05:26→18:05)
[2020-11-15 05:31] LABS: INR 1.06 (0.9-1.15); Partial Thromboplastin Time 30.1 sec (23.0-31.2)
[2020-11-15 05:39] LABS: Potassium 3.5 mmol/L (3.5-5.1)
[2020-11-15 05:51] LABS: BUN/Creatinine Ratio 11.1; Bilirubin, Total 0.5 mg/dL (0.2-1.0); Calcium 8.5 mg/dL (8.5-10.1); Magnesium 2.1 mg/dL (1.6-2.6); Phosphorus 3.6 mg/dL (2.5-4.90); Total Protein 8.1 g/dL (6.4-8.2)
[2020-11-15] MEDS: ACCU-CHEK COMFORT CURVE STRIP VI SCH ×4 (06:27→22:43)
[2020-11-15] MEDS: SUCRALFATE 1 GM/10 ML ORAL SUSP PO SCH ×4 (06:27→22:40)
[2020-11-15] MEDS: InsuLIN REG 1unit/0.01ml Soln (100units/ml) SC SCH ×4 (06:33→22:47)
[2020-11-15 09:00] VITALS: BP 110/63
[2020-11-15] MEDS ORDERED: DOCUSATE SOD 100 MG CAP PO PRN (10:00)
[2020-11-15] MEDS: DOCUSATE SOD 100 MG CAP PO SCH (10:15)
[2020-11-15] MEDS: RANOLAZINE ER 500 MG TAB PO SCH ×2 (10:15→22:42)
[2020-11-15] MEDS: BACLOFEN 10 MG TAB PO SCH ×2 (10:15→22:41)
[2020-11-15] MEDS: FERROUS SULFATE 325mg EC TAB PO SCH (10:16)
[2020-11-15] MEDS: CLOPIDOGREL BISULFATE 75 MG TAB PO SCH (10:16)
[2020-11-15] MEDS: APIXABAN 5 MG TAB PO SCH (10:16)
[2020-11-15] MEDS: CARVEDILOL 3.125 MG TAB PO SCH ×2 (10:17→22:41)
[2020-11-15] MEDS: FINASTERIDE 5 MG TAB PO SCH (10:18)
[2020-11-15] MEDS: PANTOPRAZOLE 40 MG/10 ML VIAL INJ IV SCH ×2 (10:18→22:40)
[2020-11-15] MEDS: RAMIPRIL 10 MG CAP PO SCH (10:19)
[2020-11-15 13:29] VITALS: BP 105/44
[2020-11-15 17:00] VITALS: BP 100/50
[2020-11-15] MEDS: MIRTAZAPINE 30 MG TAB PO SCH (18:00)
[2020-11-15] MEDS: TEMAZEPAM 15 MG CAP PO SCH (18:07)
[2020-11-15 22:00] VITALS: BP 111/48
[2020-11-15] MEDS: FLUTICASONE VILANTEROL IN SCH (22:00)
[2020-11-15] MEDS: ATORVASTATIN 20 MG TAB PO SCH (22:41)
[2020-11-15] MEDS: ENOXAPARIN SOD 60 MG/0.6 ML SYRINGE SC SCH (22:42)
[2020-11-16 05:00] VITALS: BP 108/57
[2020-11-16 05:44] LABS: Basophils # (auto) 0.1 10 ^3/uL (0-0.2); Basophils % (auto) 0.8 % (0.0-2.0); Eosinophils # (auto) 0.2 10 ^3/uL (0-0.8); Eosinophils % (auto) 3.6 % (0.0-7.0); Hematocrit 37.7 % (41.0-53.0); Hemoglobin 13.1 g/dL (13.5-17.5); Lymphocytes # (auto) 1.5 10 ^3/uL (0.4-5.4); Lymphocytes % (auto) 23.9 % (10.0-50.0); Mean Corpuscular Hemoglobin 33.4 pg (28.0-32.0); Mean Corpuscular Hgb Conc. 34.7 g/dL (32.0-36.0); Mean Corpuscular Volume 96.4 fL (80.0-100.0); Monocytes # (auto) 0.6 10 ^3/uL (0-1.3); Monocytes % (auto) 9.3 % (0.0-12.0); Neutrophils % (auto) 62.4 % (37.0-80.0); Platelet Count (auto) 299 10^3/uL (140-450); Red Blood Cells 3.91 10^6/uL (4.5-5.90); Red Cell Distribution Width 15.2 % (11.8-14.3); White Blood Cell 6.4 10^3/uL (4.4-10.8)
[2020-11-16 05:59] LABS: INR 1.08 (0.9-1.15); Partial Thromboplastin Time 36.9 sec (23.0-31.2)
[2020-11-16] MEDS: FUROSEMIDE 40 MG/4 ML VIAL IV SCH (06:01)
[2020-11-16] MEDS: SUCRALFATE 1 GM/10 ML ORAL SUSP PO SCH ×4 (06:02→21:44)
[2020-11-16] MEDS: SODIUM CHLOR 0.9% PF (SALINE LOCK) 10ML VIAL/SYR IV SCH ×3 (06:02→21:44)
[2020-11-16] MEDS: ACCU-CHEK COMFORT CURVE STRIP VI SCH ×4 (06:02→21:47)
[2020-11-16 06:03] LABS: Calcium 8.6 mg/dL (8.5-10.1); Potassium 4.1 mmol/L (3.5-5.1)
[2020-11-16 06:12] LABS: BUN/Creatinine Ratio 11.1; Bilirubin, Total 0.5 mg/dL (0.2-1.0); Magnesium 2.2 mg/dL (1.6-2.6); Phosphorus 3.6 mg/dL (2.5-4.90); Total Protein 7.9 g/dL (6.4-8.2)
[2020-11-16] MEDS: InsuLIN REG 1unit/0.01ml Soln (100units/ml) SC SCH ×4 (06:18→21:51)
[2020-11-16 08:24] VITALS: BP 104/60
[2020-11-16] MEDS: PANTOPRAZOLE 40 MG/10 ML VIAL INJ IV SCH ×2 (09:50→21:44)
[2020-11-16] MEDS: FERROUS SULFATE 325mg EC TAB PO SCH (09:51)
[2020-11-16] MEDS: RAMIPRIL 10 MG CAP PO SCH (09:54)
[2020-11-16] MEDS: DOCUSATE SOD 100 MG CAP PO SCH (09:55)
[2020-11-16] MEDS: CARVEDILOL 3.125 MG TAB PO SCH ×2 (09:55→21:44)
[2020-11-16] MEDS: RANOLAZINE ER 500 MG TAB PO SCH ×2 (09:56→21:47)
[2020-11-16] MEDS: BACLOFEN 10 MG TAB PO SCH ×2 (09:56→21:46)
[2020-11-16] MEDS: FINASTERIDE 5 MG TAB PO SCH (09:56)
[2020-11-16] MEDS: CLOPIDOGREL BISULFATE 75 MG TAB PO SCH (09:56)
[2020-11-16] MEDS: ENOXAPARIN SOD 60 MG/0.6 ML SYRINGE SC SCH (09:56)
[2020-11-16] MEDS: FLUTICASONE VILANTEROL IN SCH ×2 (09:57→21:43)
[2020-11-16] MEDS: SODIUM CHLORIDE 0.9% 1,000 ML IV SCH (09:58)
[2020-11-16] MEDS ORDERED: DAPAGLIFLOZIN 5 MG TAB PO SCH (10:00)
[2020-11-16 12:48] VITALS: BP 100/50
[2020-11-16] MEDS: ACETYLCYSTEINE 20%(200MG/ML) SOLN 30ML PO SCH ×2 (14:06→21:46)
[2020-11-16 16:50] VITALS: BP 134/58
[2020-11-16] MEDS: TEMAZEPAM 15 MG CAP PO SCH (18:15)
[2020-11-16] MEDS: MIRTAZAPINE 30 MG TAB PO SCH (18:15)
[2020-11-16] MEDS: ATORVASTATIN 20 MG TAB PO SCH (21:46)
[2020-11-16 22:00] VITALS: BP 107/50
[2020-11-17 05:00] VITALS: BP 141/72
[2020-11-17] MEDS: SODIUM CHLORIDE 0.9% 1,000 ML IV SCH (05:00)
[2020-11-17] MEDS: SODIUM CHLOR 0.9% PF (SALINE LOCK) 10ML VIAL/SYR IV SCH ×3 (05:16→22:02)
[2020-11-17] MEDS: ACCU-CHEK COMFORT CURVE STRIP VI SCH ×4 (06:25→22:04)
[2020-11-17] MEDS: SUCRALFATE 1 GM/10 ML ORAL SUSP PO SCH ×4 (06:25→22:00)
[2020-11-17] MEDS: InsuLIN REG 1unit/0.01ml Soln (100units/ml) SC SCH ×4 (06:32→22:08)
[2020-11-17 08:10] VITALS: BP 126/65
[2020-11-17] MEDS: FLUTICASONE VILANTEROL IN SCH ×2 (10:00→22:00)
[2020-11-17] MEDS ORDERED: ENOXAPARIN SOD 60 MG/0.6 ML SYRINGE SC SCH (10:00)
[2020-11-17] MEDS: PANTOPRAZOLE 40 MG/10 ML VIAL INJ IV SCH ×2 (10:02→22:02)
[2020-11-17] MEDS: FERROUS SULFATE 325mg EC TAB PO SCH (10:02)
[2020-11-17] MEDS: HYDROcodone-ACET 5/325MG TAB PO PRN (10:03)
[2020-11-17] MEDS: DOCUSATE SOD 100 MG CAP PO SCH (10:03)
[2020-11-17] MEDS: CARVEDILOL 3.125 MG TAB PO SCH ×2 (10:04→22:00)
[2020-11-17] MEDS: RANOLAZINE ER 500 MG TAB PO SCH ×2 (10:05→22:04)
[2020-11-17] MEDS: BACLOFEN 10 MG TAB PO SCH ×2 (10:05→22:03)
[2020-11-17] MEDS: CLOPIDOGREL BISULFATE 75 MG TAB PO SCH (10:05)
[2020-11-17] MEDS: FINASTERIDE 5 MG TAB PO SCH (10:08)
[2020-11-17] MEDS: ACETYLCYSTEINE 20%(200MG/ML) SOLN 30ML PO SCH ×2 (10:22→22:04)
[2020-11-17] MEDS ORDERED: RANOLAZINE ER 500 MG TAB PO ONE (10:30)
[2020-11-17 12:27] VITALS: BP 137/56
[2020-11-17 16:51] VITALS: BP 121/63
[2020-11-17 18:00] VITALS: BP 132/59
[2020-11-17] MEDS: MIRTAZAPINE 30 MG TAB PO SCH (18:04)
[2020-11-17] MEDS: TEMAZEPAM 15 MG CAP PO SCH (18:04)
[2020-11-17 22:00] VITALS: BP 132/59
[2020-11-17] MEDS: ATORVASTATIN 20 MG TAB PO SCH (22:03)
[2020-11-18] MEDS: SODIUM CHLORIDE 0.9% 1,000 ML IV SCH (00:45)
[2020-11-18] MEDS: SUCRALFATE 1 GM/10 ML ORAL SUSP PO SCH ×4 (00:46→22:17)
[2020-11-18 05:00] VITALS: BP 137/59
[2020-11-18] MEDS: InsuLIN REG 1unit/0.01ml Soln (100units/ml) SC SCH ×4 (05:31→22:19)
[2020-11-18] MEDS: SODIUM CHLOR 0.9% PF (SALINE LOCK) 10ML VIAL/SYR IV SCH ×3 (05:31→22:17)
[2020-11-18] MEDS: ACCU-CHEK COMFORT CURVE STRIP VI SCH ×4 (05:32→22:19)
[2020-11-18 05:46] LABS: Basophils # (auto) 0.1 10 ^3/uL (0-0.2); Basophils % (auto) 1.1 % (0.0-2.0); Eosinophils # (auto) 0.3 10 ^3/uL (0-0.8); Eosinophils % (auto) 3.7 % (0.0-7.0); Hematocrit 35.3 % (41.0-53.0); Hemoglobin 11.9 g/dL (13.5-17.5); Lymphocytes # (auto) 1.7 10 ^3/uL (0.4-5.4); Mean Corpuscular Hemoglobin 32.6 pg (28.0-32.0); Mean Corpuscular Hgb Conc. 33.7 g/dL (32.0-36.0); Mean Corpuscular Volume 96.7 fL (80.0-100.0); Monocytes # (auto) 0.7 10 ^3/uL (0-1.3); Monocytes % (auto) 9.6 % (0.0-12.0); Neutrophils # (auto) 4.2 10 ^3/uL (1.6-8.6); Neutrophils % (auto) 60.6 % (37.0-80.0); Nucleated Red Blood Cells % 0.1 %; Platelet Count (auto) 319 10^3/uL (140-450); Red Blood Cells 3.65 10^6/uL (4.5-5.90); Red Cell Distribution Width 15.4 % (11.8-14.3); White Blood Cell 6.9 10^3/uL (4.4-10.8)
[2020-11-18 05:58] LABS: INR 1.03 (0.9-1.15); Partial Thromboplastin Time 26.1 sec (23.0-31.2)
[2020-11-18 06:12] LABS: BUN/Creatinine Ratio 20.1; Calcium 8.3 mg/dL (8.5-10.1)
[2020-11-18] MEDS ORDERED: IODIXANOL 320MG/ML 100ML BTL IV ONE ×3 (07:30→09:03)
[2020-11-18] MEDS ORDERED: LIDOCAINE 2%HCL (LOCAL ANESTH.) INJ 20ML MDV ONE (07:30)
[2020-11-18] MEDS ORDERED: SODIUM CHL 0.9% 50 ML ONE (08:25)
[2020-11-18] MEDS ORDERED: ANGIOMAX 250 MG VIAL IV ONE (08:25)
[2020-11-18] MEDS ORDERED: MIDAZOLAM HCL 1MG/1ML-2 ML VIAL ONE (08:25)
[2020-11-18] MEDS ORDERED: fentaNYL CITRATE 100 MCG/2 ML VL ONE (08:25)
[2020-11-18] MEDS ORDERED: CLOPIDOGREL BISULFATE 75 MG TAB ONE (09:29)
[2020-11-18] MEDS ORDERED: ASPirin 81 mg TAB ONE (09:29)
[2020-11-18] MEDS: FERROUS SULFATE 325mg EC TAB PO SCH (10:00)
[2020-11-18] MEDS: FLUTICASONE VILANTEROL IN SCH ×2 (10:00→22:00)
[2020-11-18] MEDS: CARVEDILOL 3.125 MG TAB PO SCH ×2 (10:00→22:00)
[2020-11-18] MEDS: RANOLAZINE ER 500 MG TAB PO SCH ×2 (10:00→22:18)
[2020-11-18] MEDS: BACLOFEN 10 MG TAB PO SCH ×2 (10:00→22:18)
[2020-11-18] MEDS: DOCUSATE SOD 100 MG CAP PO SCH (10:00)
[2020-11-18] MEDS: PANTOPRAZOLE 40 MG/10 ML VIAL INJ IV SCH ×2 (10:00→22:17)
[2020-11-18] MEDS: CLOPIDOGREL BISULFATE 75 MG TAB PO SCH (10:00)
[2020-11-18] MEDS: FINASTERIDE 5 MG TAB PO SCH (12:21)
[2020-11-18 13:00] VITALS: BP 135/58
[2020-11-18 14:00] VITALS: BP 116/61
[2020-11-18 17:00] VITALS: BP 122/52
[2020-11-18] MEDS: TEMAZEPAM 15 MG CAP PO SCH (18:07)
[2020-11-18] MEDS: MIRTAZAPINE 30 MG TAB PO SCH (18:07)
[2020-11-18 22:00] VITALS: BP 115/54
[2020-11-18] MEDS: ATORVASTATIN 20 MG TAB PO SCH (22:18)
[2020-11-19 05:00] VITALS: BP 143/80
[2020-11-19] MEDS: SODIUM CHLOR 0.9% PF (SALINE LOCK) 10ML VIAL/SYR IV SCH ×2 (05:19→16:51)
[2020-11-19 05:59] LABS: Basophils # (auto) 0 10 ^3/uL (0-0.2); Basophils % (auto) 0.5 % (0.0-2.0); Eosinophils # (auto) 0.3 10 ^3/uL (0-0.8); Eosinophils % (auto) 3.2 % (0.0-7.0); Hematocrit 34.8 % (41.0-53.0); Lymphocytes # (auto) 1.6 10 ^3/uL (0.4-5.4); Lymphocytes % (auto) 20.1 % (10.0-50.0); Mean Corpuscular Hemoglobin 33.3 pg (28.0-32.0); Mean Corpuscular Hgb Conc. 34.5 g/dL (32.0-36.0); Mean Corpuscular Volume 96.7 fL (80.0-100.0); Monocytes # (auto) 0.7 10 ^3/uL (0-1.3); Monocytes % (auto) 8.7 % (0.0-12.0); Neutrophils # (auto) 5.5 10 ^3/uL (1.6-8.6); Neutrophils % (auto) 67.5 % (37.0-80.0); Nucleated Red Blood Cells % 0.1 %; Platelet Count (auto) 279 10^3/uL (140-450); Red Cell Distribution Width 15.5 % (11.8-14.3); White Blood Cell 8.1 10^3/uL (4.4-10.8)
[2020-11-19 06:14] LABS: BUN/Creatinine Ratio 14.2; Calcium 8.8 mg/dL (8.5-10.1)
[2020-11-19] MEDS: ACCU-CHEK COMFORT CURVE STRIP VI SCH ×3 (06:27→17:01)
[2020-11-19] MEDS: SUCRALFATE 1 GM/10 ML ORAL SUSP PO SCH ×3 (06:27→17:07)
[2020-11-19] MEDS: InsuLIN REG 1unit/0.01ml Soln (100units/ml) SC SCH ×3 (06:28→17:07)
[2020-11-19 09:00] VITALS: BP 125/58
[2020-11-19] MEDS: CLOPIDOGREL BISULFATE 75 MG TAB PO SCH (09:36)
[2020-11-19] MEDS: PANTOPRAZOLE 40 MG/10 ML VIAL INJ IV SCH (09:36)
[2020-11-19] MEDS: DOCUSATE SOD 100 MG CAP PO SCH (09:37)
[2020-11-19] MEDS: CARVEDILOL 3.125 MG TAB PO SCH (09:37)
[2020-11-19] MEDS: BACLOFEN 10 MG TAB PO SCH (09:37)
[2020-11-19] MEDS: RANOLAZINE ER 500 MG TAB PO SCH (09:37)
[2020-11-19] MEDS: FERROUS SULFATE 325mg EC TAB PO SCH (09:37)
[2020-11-19] MEDS: FINASTERIDE 5 MG TAB PO SCH (09:38)
[2020-11-19] MEDS: HYDROcodone-ACET 5/325MG TAB PO PRN (09:40)
[2020-11-19] MEDS ORDERED: ASPirin-EC 81 mg tab PO SCH (10:00)
[2020-11-19] MEDS: FLUTICASONE VILANTEROL IN SCH (10:00)
[2020-11-19 13:00] VITALS: BP 155/60
[2020-11-19 17:00] VITALS: BP 126/53
[2020-11-19 17:24] VITALS: BP 126/83
[2020-11-19] MEDS: MIRTAZAPINE 30 MG TAB PO SCH (18:00)
[2020-11-19] MEDS: TEMAZEPAM 15 MG CAP PO SCH (18:00)
== END 2020-11-19 18:33 | disposition home or self-care (01) | DRG 246 ==
LOC: ER 09:34 → EDBD 09:34 → TELE 13:11 → TELE-CENTR 16:39
PROVIDERS: ADMIT Hospitalist; ATTEND Internal Medicine
PROC: 027034Z Dilation of Coronary Artery, One Artery with Drug-eluting Intraluminal Device, Percutaneous Approach (ICD-10-PCS; principal; 2020-11-18)
PROC: 4A023N7 Measurement of Cardiac Sampling and Pressure, Left Heart, Percutaneous Approach (ICD-10-PCS; 2020-11-18)
PROC: B211YZZ Fluoroscopy of Multiple Coronary Arteries using Other Contrast (ICD-10-PCS; 2020-11-18)
PROC: B213YZZ Fluoroscopy of Multiple Coronary Artery Bypass Grafts using Other Contrast (ICD-10-PCS; 2020-11-18)
PROC: B218YZZ Fluoroscopy of Left Internal Mammary Bypass Graft using Other Contrast (ICD-10-PCS; 2020-11-18)
PROC: B215YZZ Fluoroscopy of Left Heart using Other Contrast (ICD-10-PCS; 2020-11-18)
DX: I25.10 Atherosclerotic heart disease of native coronary artery without angina pectoris (principal); I50.23 Acute on chronic systolic (congestive) heart failure; N17.0 Acute kidney failure with tubular necrosis; I21.4 Non-ST elevation (NSTEMI) myocardial infarction; E43 Unspecified severe protein-calorie malnutrition; I13.0 Hypertensive heart and chronic kidney disease with heart failure and stage 1 through stage 4 chronic kidney disease, or unspecified chronic kidney disease; N13.8 Other obstructive and reflux uropathy; Z20.822 Contact with and (suspected) exposure to COVID-19; D63.8 Anemia in other chronic diseases classified elsewhere; E03.9 Hypothyroidism, unspecified; E05.90 Thyrotoxicosis, unspecified without thyrotoxic crisis or storm; E11.22 Type 2 diabetes mellitus with diabetic chronic kidney disease; N18.31 Chronic kidney disease, stage 3a; F03.90 Unspecified dementia, unspecified severity, without behavioral disturbance, psychotic disturbance, mood disturbance, and anxiety; F32.9 Major depressive disorder, single episode, unspecified; H91.10 Presbycusis, unspecified ear; I27.20 Pulmonary hypertension, unspecified; M81.0 Age-related osteoporosis without current pathological fracture; I05.9 Rheumatic mitral valve disease, unspecified; K21.9 Gastro-esophageal reflux disease without esophagitis; J44.9 Chronic obstructive pulmonary disease, unspecified; I50.82 Biventricular heart failure; N40.1 Benign prostatic hyperplasia with lower urinary tract symptoms; E78.5 Hyperlipidemia, unspecified; Z95.1 Presence of aortocoronary bypass graft; Z95.0 Presence of cardiac pacemaker; Z82.49 Family history of ischemic heart disease and other diseases of the circulatory system; Z86.73 Personal history of transient ischemic attack (TIA), and cerebral infarction without residual deficits; Z79.02 Long term (current) use of antithrombotics/antiplatelets; Z98.61 Coronary angioplasty status; Z79.01 Long term (current) use of anticoagulants; Z87.891 Personal history of nicotine dependence; Z83.3 Family history of diabetes mellitus; Z79.4 Long term (current) use of insulin; Z91.14 Patient's other noncompliance with medication regimen; Z79.899 Other long term (current) drug therapy; Z68.21 Body mass index [BMI] 21.0-21.9, adult
CPT/HCPCS: 36415; 71045; 80048; 80053; 81001; 82306; 82962; 83036; 83735; 83880; 84100; 84443; 84484; 85025; 85610; 85730; 86850; 86900; 86901; 87040; 87086; 87426; 93005; 93306; 96372; 99152; 99153; C9113; G0378; J1815; J2250; Q9967